=== PATIENT | male | born 1960 | race Caucasian/White ===

== ENCOUNTER 2021-12-29 09:19 | Emergency (ER) | payer MEDICAID ==
[~2021-12-29] VITALS: Ht 177.8 cm; Wt 108.9 kg
[2021-12-29 09:28] VITALS: BP_SYST 134
[2021-12-29 10:09] LABS: BASOPHILS # (AUTO) 0.1 K/uL (0.0-0.2); BASOPHILS % (AUTO) 0.7 % (0.0-2.0); EOSINOPHILS # (AUTO) 0.2 K/uL (0.0-0.4); EOSINOPHILS % (AUTO) 2.5 % (0.0-4.0); HEMATOCRIT 38.4 % (36-54); HEMOGLOBIN 13.3 g/dL (14.0-18.0); LYMPHOCYTES # (AUTO) 1.7 K/uL (1.0-5.5); MEAN CORPUSCULAR HEMOGLOBIN 30 pg (27-31); MEAN CORPUSCULAR HGB CONC 35 % (32-36); MEAN CORPUSCULAR VOLUME 88 fL (79.0-98.0); MONOCYTES # (AUTO) 0.6 K/uL (0.0-1.0); NEUTROPHILS # (AUTO) 5.3 K/uL (1.8-7.7); NEUTROPHILS % (AUTO) 66.8 % (40.0-70.0); PLATELET COUNT (AUTO) 230 K/uL (130-430); RED BLOOD CELL COUNT(AUTO) 4.39 MIL/uL (4.2-6.2); RED CELL DISTRIBUTION WIDTH 13.5 % (9.0-15.0); WHITE BLOOD COUNT (AUTO) 7.9 K/uL (4.8-10.8)
[2021-12-29 10:20] LABS: CALCIUM 8.8 mg/dL (8.4-11.0); CREATININE 0.83 mg/dL (0.55-1.30); POTASSIUM 3.7 mmol/L (3.5-5.1)
[2021-12-29 10:25] LABS: ALBUMIN 3.4 g/dL (3.4-4.8); TOTAL BILIRUBIN 0.3 mg/dL (0.0-1.0)
[2021-12-29 11:09] LABS: BILIRUBIN,URINE NEGATIVE (NEGATIVE); BLOOD, URINE NEGATIVE (NEGATIVE); CLARITY/URINE CLEAR (CLEAR); COLOR,URINE YELLOW (YELLOW); GLUCOSE,URINE NEGATIVE (NEGATIVE); KETONES,URINE NEGATIVE (NEGATIVE); LEUKOCYTE ESTERASE ,URINE NEGATIVE (NEGATIVE); NITRITE, URINE NEGATIVE (NEGATIVE); PROTEIN URINE NEGATIVE (NEGATIVE); UROBILINOGEN,URINE 0.2 (0.2-1.0)
[2021-12-29 11:46] VITALS: BP_SYST 136
[2021-12-29] MEDS ORDERED: ONDA-8 TL (12:54)
== END 2021-12-29 13:05 | disposition home or self-care (01) ==
LOC: SED 09:19
DX: R19.7 Diarrhea, unspecified (principal); K92.9 Disease of digestive system, unspecified; R10.84 Generalized abdominal pain; Z87.11 Personal history of peptic ulcer disease; Z79.899 Other long term (current) drug therapy
CPT/HCPCS: 36415; 80053; 81003; 82272; 83690; 85025; 93005; 99284

== ENCOUNTER 2023-02-28 13:01 | Inpatient (IN) | payer MEDICAID ==
[~2023-02-28] VITALS: Ht 177.8 cm; Wt 106.6 kg
[~2023-02-28 13:01] MED LIST: ONDA-8 TL
[2023-02-28 13:27] VITALS: BP_SYST 103; PULSE 94; RESP 19; TEMP 97.4; O2SAT 100
[2023-02-28] MEDS ORDERED: NACL 0.9% 1,000 ML IV ONE ×2 (15:00→19:00)
[2023-02-28] MEDS ORDERED: PANTOPRAZOLE SODIUM 40 MG/VIAL (PROTONIX) IVP ONE (15:00)
[2023-02-28] MEDS ORDERED: ONDANSETRON HCL 4 MG/2 ML VIAL IVP ONE ×2 (15:00→19:00)
[2023-02-28 15:08] LABS: BASOPHILS % (AUTO) 0.4 % (0.0-2.0); EOSINOPHILS # (AUTO) 0.1 K/uL (0.0-0.4); EOSINOPHILS % (AUTO) 0.9 % (0.0-4.0); HEMATOCRIT 25.8 % (36-54); HEMOGLOBIN 8.9 g/dL (14.0-18.0); LYMPHOCYTES # (AUTO) 1.9 K/uL (1.0-5.5); LYMPHOCYTES % (AUTO) 16.4 % (20.5-51.5); MEAN CORPUSCULAR HEMOGLOBIN 31 pg (27-31); MEAN CORPUSCULAR HGB CONC 35 % (32-36); MEAN CORPUSCULAR VOLUME 88 fL (79.0-98.0); MONOCYTES # (AUTO) 0.8 K/uL (0.0-1.0); MONOCYTES % (AUTO) 6.5 % (1.7-9.3); NEUTROPHILS # (AUTO) 8.8 K/uL (1.8-7.7); NEUTROPHILS % (AUTO) 75.8 % (40.0-70.0); PLATELET COUNT (AUTO) 220 K/uL (130-430); RED BLOOD CELL COUNT(AUTO) 2.92 MIL/uL (4.2-6.2); WHITE BLOOD COUNT (AUTO) 11.7 K/uL (4.8-10.8)
[2023-02-28 15:38] LABS: BILIRUBIN,DIRECT 0.1 mg/dL (0.0-0.3); CALCIUM 7.9 mg/dL (8.4-11.0); CREATININE 0.75 mg/dL (0.55-1.30); TOTAL BILIRUBIN 0.1 mg/dL (0.0-1.0); TOTAL PROTEIN, SERUM 6.4 g/dL (6.4-8.3)
[2023-02-28] MEDS ORDERED: MORPHINE 2 MG/ML INJ. SYRINGE IVP ONE (19:00)
[2023-03-01] MEDS ORDERED: PANTOPRAZOLE SODIUM 40 MG/VIAL (PROTONIX) IVP SCH (09:00)
[2023-03-01 10:04] VITALS: BP_SYST 107; PULSE 78; RESP 18; TEMP 98.7; O2SAT 97
[2023-03-01 12:36] VITALS: BP_SYST 100; PULSE 88; RESP 18; TEMP 99; O2SAT 98
[2023-03-01] MEDS ORDERED: PANTOPRAZOLE SODIUM 40 MG/VIAL (PROTONIX) IVP ONE (15:30)
[2023-03-01] MEDS ORDERED: MIDAZOLAM HCL 5 MG/5 ML VIAL ONE (16:18)
[2023-03-01] MEDS ORDERED: MEPERIDINE 100 MG INJ. 100 MG/ML VIAL ONE (16:18)
[2023-03-01] MEDS ORDERED: fentaNYL CITRATE/PF 100 MCG/2 ML AMP ONE (16:26)
[2023-03-01 17:46] VITALS: BP_SYST 120; PULSE 79; RESP 16; TEMP 98.8; O2SAT 99
[2023-03-01 20:45] VITALS: BP_SYST 106; PULSE 87; RESP 20; TEMP 97.7
[2023-03-01] MEDS: PANTOPRAZOLE SODIUM 40 MG/VIAL (PROTONIX) IVP SCH (22:34)
[2023-03-02 08:00] VITALS: BP_SYST 99; PULSE 83; RESP 16; TEMP 98.2; O2SAT 99
[2023-03-02 08:26] LABS: BASOPHILS % (AUTO) 0.5 % (0.0-2.0); EOSINOPHILS # (AUTO) 0.2 K/uL (0.0-0.4); EOSINOPHILS % (AUTO) 2.9 % (0.0-4.0); HEMATOCRIT 25.2 % (36-54); HEMOGLOBIN 8.3 g/dL (14.0-18.0); LYMPHOCYTES # (AUTO) 1.9 K/uL (1.0-5.5); LYMPHOCYTES % (AUTO) 23.2 % (20.5-51.5); MEAN CORPUSCULAR HEMOGLOBIN 30 pg (27-31); MEAN CORPUSCULAR HGB CONC 33 % (32-36); MEAN CORPUSCULAR VOLUME 90 fL (79.0-98.0); MONOCYTES # (AUTO) 0.6 K/uL (0.0-1.0); MONOCYTES % (AUTO) 7.1 % (1.7-9.3); NEUTROPHILS # (AUTO) 5.3 K/uL (1.8-7.7); NEUTROPHILS % (AUTO) 66.3 % (40.0-70.0); PLATELET COUNT (AUTO) 226 K/uL (130-430); RED CELL DISTRIBUTION WIDTH 14.3 % (9.0-15.0); WHITE BLOOD COUNT (AUTO) 8.1 K/uL (4.8-10.8)
[2023-03-02 08:45] LABS: CALCIUM 8.2 mg/dL (8.4-11.0); CREATININE 0.75 mg/dL (0.55-1.30); POTASSIUM 3.7 mmol/L (3.5-5.1)
[2023-03-02] MEDS: PANTOPRAZOLE SODIUM 40 MG/VIAL (PROTONIX) IVP SCH (10:19)
[2023-03-02 11:09] VITALS: BP_SYST 105; PULSE 78; RESP 16; TEMP 97.5; O2SAT 98
[2023-03-02] MEDS ORDERED: PRO40 PO (14:55)
[2023-03-02 15:07] VITALS: BP_SYST 96; PULSE 87; RESP 16; TEMP 99.6; O2SAT 99
[2023-03-02 17:38] VITALS: BP_SYST 96; PULSE 87; RESP 16; TEMP 99.6; O2SAT 99
== END 2023-03-02 17:52 | disposition home or self-care (01) | DRG 241 ==
LOC: SED 13:01 → STU 16:56 → SMU 03-01 19:04
PROVIDERS: ADMIT Internal Medicine; ATTEND Internal Medicine
PROC: 0DB78ZX Excision of Stomach, Pylorus, Via Natural or Artificial Opening Endoscopic, Diagnostic (ICD-10-PCS; principal; 2023-03-01 16:00)
DX: K25.4 Chronic or unspecified gastric ulcer with hemorrhage (principal); R65.10 Systemic inflammatory response syndrome (SIRS) of non-infectious origin without acute organ dysfunction; E44.0 Moderate protein-calorie malnutrition; C85.90 Non-Hodgkin lymphoma, unspecified, unspecified site; E83.51 Hypocalcemia; Z68.33 Body mass index [BMI] 33.0-33.9, adult
CPT/HCPCS: 36415; 43239; 76376; 80048; 80076; 83690; 84484; 85025; 86886; 86900; 86901; 88305; 88312; 88313; 93005; 96361; 96374; 96375; 99285; C9113; G0378; J2175; J2250; J2270; J2405; J3010